=== PATIENT | female | born 1945 | race Caucasian/White ===

== ENCOUNTER → 2019-03-07 | Outpatient (CLI) | payer OTHER, BC | LOC: RAD 09:12 | DX: R06.00 Dyspnea, unspecified (principal); Z88.8 Allergy status to other drugs, medicaments and biological substances; Z88.2 Allergy status to sulfonamides; Z88.0 Allergy status to penicillin; Z91.013 Allergy to seafood ==

== ENCOUNTER → 2019-03-16 | Outpatient (CLI) | payer OTHER, BC | LOC: CAT 12:47 | DX: I77.89 Other specified disorders of arteries and arterioles (principal); I25.10 Atherosclerotic heart disease of native coronary artery without angina pectoris; M47.814 Spondylosis without myelopathy or radiculopathy, thoracic region; I70.0 Atherosclerosis of aorta ==

== ENCOUNTER → 2019-04-11 | Outpatient (CLI) | payer OTHER, BC ==
[~2019-04-11] VITALS: Ht 167.6 cm; Wt 68.9 kg
[~2019-04-11] MED LIST: DIGOXIN125 MCG PO; MIDODRINE HCL 55 M1 PO; REMERON15 MG PO; SYNTHROID75 MCG PO
[2019-04-11 07:09] VITALS: BP 127/86
[2019-04-11 07:26] LABS: HEMATOCRIT 44.5 % (37.0-47.0); HEMOGLOBIN 14.8 gm/dL (12.0-15.0); MCH 31.9 pg (26.0-34.0); MCHC 33.3 g/dL (28.0-37.0); MCV 95.8 fL (80.0-100.0); RBC 4.64 mil/uL (4.20-5.00); RDW 14.9 % (10.5-14.5); WBC 11.2 thou/uL (4.0-11.0)
[2019-04-11 07:37] LABS: CALCIUM 10.5 mg/dL (8.5-10.1); CREATININE 1.8 mg/dL (0.6-1.0); POTASSIUM 4.3 mmol/L (3.5-5.1)
--- NOTE | 2019-04-11 08:16 | EKG ---
[place] [address] [facility] [employer] [place] [address] ELECTROCARDIOGRAM REPORT Name: EDWIN WORKMAN [id number] Admission: 04/11/19 Attend Phys: Ammon Fernández MD, Discharge: Date of : 41 Report #: [id number] THIS REPORT FOR: //name// [facility] Test Date: 2019-04-11 Test Time: 07:18:50 Pat Name: EDWIN WORKMAN Department: Room: Gender: F [place] Measurer: Sony ANDREWS : 1945 Requested By: Ammon Fernández Order Number: [id number] MD: Bala Church Measurements Intervals [place] Rate: 76 P: 51 VT: 183 QRS: 137 QRSD: 104 T: 42 QT: 382 QTc: 430 Interpretive Statements Sinus rhythm Right axis deviation Abnormal R-wave progression, late transition Compared to ECG 03/19/1998 06:52:00 Right-axis deviation now present Incomplete right bundle-branch block no longer present T-wave abnormality no longer present Electronically Signed On 04-11-2019 8:16:14 CDT by Bala Church [email or web address] <ELECTRONICALLY SIGNED> By: Bala Church MD 04/11/19815 7 7 Bala Church MD /EPI
--- NOTE | 2019-04-12 16:18 | CATHLAB ---
[facility] [address] [place] [address] INVASIVE PROCEDURE REPORT Name: EDWIN WORKMAN Room #: REG Samuel#: [id number] Admission: 04/11/19 Attend Phys: Ammon Fernández, Discharge: Date of : 43 Report #: [id number] THIS REPORT FOR: //name// APPROVED REPORT Study performed: 04/11/2019 07:39:27 Patient Details Patient Status: Out-Patient Room #: The patient is a 73 year-old female Event Personnel Ammon Fernández Labor Relations Specialist, Aba Del Rio RN, Delgado Oconnor RTR Scrub, Jeronimo Pena Monitor, Ute Simmons RTR Scrub Procedures Performed Right and Left Heart Cath w/or w/o Coronarie [id number] [facility] Renal Bilateral Peripheral Angiography [id number] CVRENALBIL Indication Chest pain Procedure Narrative The Right Groin^ was infiltrated with 1% Lidocaine subcutaneous anesthesia. A PINNACLE 6FR Sheath #[id number] sheath was inserted into the . Coronary angiography was performed using coronary diagnostic catheters. The right coronary system was accessed and visualized with a JR4 catheter. The left coronary system was accessed and visualized with a 6FR JL5 #[id number] catheter. The left ventricle was accessed and visualized with a PIGTAIL catheter. Left ventricular/Aortic Valve gradient assessed via catheter pullback. Left ventriculogram was performed in 30 degree projection. Closure device was deployed with a 6 Fr MYNXGRIP 6/7F #[id number]. The patient tolerated the procedure well and there were no complications associated with the procedure. There was no hematoma. Intraoperative Conscious Sedation Sedation start time: 8.31 Case end Time: 9.13 Fentanyl 50 mcg Versed 2 mg Fluoro Time: 7.49 minutes Dose: DAP 3277 cGycm2 325 mGy Contrast Type and Amount: Visipaque 60 ml [facility] [place] [address] INVASIVE PROCEDURE REPORT Name: EDWIN WORKMAN Room #: REG Samuel#: [id number] Admission: 04/11/19 Attend Phys: Ammon Fernández, Discharge: Date of : 43 Report #: [id number] Hemodynamics The right atrial mean pressure is 13 mmHg. The right ventricular pressure is 48/8 mmHg. The pulmonary artery pressure is 28/15 mmHg with a mean of 21 mmHg. The aortic pressure is 136/61 mmHg with a mean of 73 mmHg. The left ventricular pressure is 121/9 mmHg with a mean of mmHg. The left ventricular end diastolic pressure is 16 mmHg. There was no gradient across the aortic valve upon pullback. Pullback from the left ventricle to the aorta revealed no gradient across the aortic valve. The cardiac output using thermo method is 4.45 L/min. The cardiac index using thermo method is 2.50 L/min/m2. Conclusion #1 successful right heart catheterization with hemodynamics as stated above. Cardiac output by thermodilution. Gradient difference between right ventricle and pulmonary artery may signify some degree of pulmonary valve stenosis. #2 left main free of disease giving rise to LAD and circumflex #3 LAD with mild disease type I extends short of the apex #4 small nondominant circumflex with mild irregularity #5 large dominant mildly ectatic right coronary artery system no occlusive disease. #6 left renal artery with mild ostial disease suspected renal artery atherosclerosis. No occlusive lesion #6 right renal artery is smaller mild disease proximally but no evidence of FMD or significant stenosis Recommendations and plan: Continue aggressive risk factor modification. No significant pulmonary pressure elevation with evidence or history of significant pulmonary artery dilatation. There is a 10-12 mm gradient between the right ventricle and pulmonary artery. Follow-up with Dr. Vázquez <ELECTRONICALLY SIGNED> By: Ammon Feránndez MD, FACC 04/12/19 1618 17 17 Ammon Fernández MD, FACC /INF
== END | disposition home or self-care (01) ==
LOC: CATH 06:42 → CAT 10:03
PROVIDERS: Internal Medicine Cardiovascular Disease
DX: R07.9 Chest pain, unspecified (principal); I25.10 Atherosclerotic heart disease of native coronary artery without angina pectoris; I70.1 Atherosclerosis of renal artery; I10 Essential (primary) hypertension; E78.5 Hyperlipidemia, unspecified; E11.9 Type 2 diabetes mellitus without complications; Z98.890 Other specified postprocedural states; Z90.49 Acquired absence of other specified parts of digestive tract; Z79.899 Other long term (current) drug therapy; Z90.710 Acquired absence of both cervix and uterus

== ENCOUNTER → 2019-07-25 | Outpatient (CLI) | payer OTHER, BC | LOC: SJCVCIMAG 12:37 | DX: I08.8 Other rheumatic multiple valve diseases (principal); I27.20 Pulmonary hypertension, unspecified; E78.5 Hyperlipidemia, unspecified; I10 Essential (primary) hypertension; R94.31 Abnormal electrocardiogram [ECG] [EKG]; E11.9 Type 2 diabetes mellitus without complications; E03.9 Hypothyroidism, unspecified; Z90.710 Acquired absence of both cervix and uterus ==

== ENCOUNTER → 2020-03-12 | Outpatient (CLI) | payer OTHER, BC | LOC: SJCVC 13:36 | PROVIDERS: ATTEND Internal Medicine Cardiovascular Disease | DX: R94.31 Abnormal electrocardiogram [ECG] [EKG] (principal); I27.20 Pulmonary hypertension, unspecified; I95.9 Hypotension, unspecified; E78.5 Hyperlipidemia, unspecified; N17.0 Acute kidney failure with tubular necrosis ==

== ENCOUNTER → 2020-08-18 | Outpatient (CLI) | payer OTHER, BC | LOC: SJCVCIMAG 09:37 | PROVIDERS: ATTEND Internal Medicine Cardiovascular Disease | DX: I34.0 Nonrheumatic mitral (valve) insufficiency (principal); R94.31 Abnormal electrocardiogram [ECG] [EKG]; I28.1 Aneurysm of pulmonary artery; E78.5 Hyperlipidemia, unspecified; I27.20 Pulmonary hypertension, unspecified; I48.0 Paroxysmal atrial fibrillation; E11.22 Type 2 diabetes mellitus with diabetic chronic kidney disease; I13.10 Hypertensive heart and chronic kidney disease without heart failure, with stage 1 through stage 4 chronic kidney disease, or unspecified chronic kidney disease; N18.9 Chronic kidney disease, unspecified; E03.9 Hypothyroidism, unspecified; Z90.49 Acquired absence of other specified parts of digestive tract; Z90.710 Acquired absence of both cervix and uterus; Z95.828 Presence of other vascular implants and grafts; Z88.8 Allergy status to other drugs, medicaments and biological substances; Z79.899 Other long term (current) drug therapy; Z86.79 Personal history of other diseases of the circulatory system; Z82.49 Family history of ischemic heart disease and other diseases of the circulatory system ==

== ENCOUNTER 2020-12-17 12:49 | Emergency (ER) | payer OTHER, BC ==
[~2020-12-17] VITALS: Ht 172.7 cm; Wt 59.0 kg
[2020-12-17 12:52] VITALS: BP 118/77
== END 2020-12-17 13:28 | disposition home or self-care (01) ==
LOC: ER 12:49
DX: S81.831A Puncture wound without foreign body, right lower leg, initial encounter (principal); I10 Essential (primary) hypertension; Z88.5 Allergy status to narcotic agent; Z88.0 Allergy status to penicillin; Z79.899 Other long term (current) drug therapy; W54.0XXA Bitten by dog, initial encounter; Y93.89 Activity, other specified; Y92.89 Other specified places as the place of occurrence of the external cause; Y99.9 Unspecified external cause status

== ENCOUNTER 2021-01-09 11:50 | Inpatient (IN) | payer OTHER, BC ==
[~2021-01-09] VITALS: Ht 167.6 cm; Wt 58.1 kg
[2021-01-09] VITALS (17 sets, daily range): BP systolic 81–103; BP diastolic 48–73
--- NOTE | ~2021-01-09 | EMS ---
[address] [address] EMS Patient Care Report Name: EDWIN WORKMAN Room #: REG JUAREZ Baker#: [id number] Admission: 01/09/21 Attend Phys: Discharge: Date of : 43 Report #: [id number] THIS REPORT FOR: //name// Report Transmitted: 01/09/2021 12:25 EMS Care Summary [facility] Incident [id number] @ 01/09/2021 10:58 Incident Location [address] [place] [address] Patient EDWIN WORKMAN Female, 75 Years 1945 Patient Address [address] [place] [address] Patient History Kidney/Renal Failure,Mastectomy, Patient Allergies Codeine,Penicillin allergy,Morphine,Shellfish allergy, Patient Medications Senna, Midodrine, Levothyroxine, Amiodarone, Chief Complaint "She's been getting weaker." Disposition Transported No Lights/[place] Reason Sick Person Transported To [facility] Narrative History: Pt's DPOA on scene reports she has noted a considerable decline in the patient's condition over the course of the last 5 days. Pt's DPOA reports that she provides regular assistance for the patient, and that today the pt was barely able to walk without assistance. DPOA reports the pt laid down on the [facility] [address] [place] [address] EMS Patient Care Report Name: EDWIN WORKMAN Room #: REG [facility]#: [id number] Admission: 01/09/21 Attend Phys: Discharge: Date of : 43 Report #: [id number] couch, and has been too weak to get up. DPOA reports she has monitored the pt's BP to be 60 systolic this morning. Pt complains of generalized weakness and fatigue. Pt denies any N/V/D or known hemorrhage. Pt denies any chest pain, shortness of breath, syncope, or recent trauma. Pt denies any change in urine output or fluid/food intake. No other complaints noted at this time. Assessment: Pt was found laying in semi-foster's position on a sofa inside the home. Pt airway patent. Pt breathing adequate and non-labored. Pt radial pulse weak. Pt skin appeared pale and clammy. Pt seemed fatigued. See assessment tab for detailed physical exam findings and pertinent negatives. Treatment: Primary. VS. HPI. PMH. Physical exam. 12-lead ECG. Pt assisted to EMS stretcher and secured in trendelenburg position. Pt moved via stretcher to ambulance. IV attempt x1 unsuccessful. Note: Initial BP delayed >5 minutes as autocuff was timing out on reading. Transport: En route, continue with on-going assessment. Biocom to [place], pt's preferred destination. IV attempt successful 22g in pt's L AC. Fluid bolus started. No other changes noted during reassessment. Destination: Pt brought via stretcher to ED room 9. Pt moved via lateral sheet drag to hospital bed. Report provided to attending RN. Patient signed. Care transferred. Initial Vitals @11:38P: 74,BP: 59/49,SpO2: 88, @11:10P: 99,ME Suspected: false @11:24P: 75,SpO2: 90, @11:23P: 75,BP: 81/56, @11:41P: 74,R: 16,BP: 76/44,GCS: 15,Revised Trauma: 11, @11:09P: 75,R: 16,Pain: 0/10,GCS: 15,Temp: 97.1F,Glucose: 225,SpO2: 93, Assessments @11:10MENTAL:Person Oriented,Time Oriented,Place Oriented,Event Oriented,SKIN:Pale,HEENT:Eyes: Left Pupil: 4-mm,Eyes: Right Pupil: 4-mm,Head/Face: No Abnormalities,LUNG SOUNDS:ABDOMEN:PELVIS//GI:EXTREMITIES:Left Arm: No Abnormalities,Right Arm: No Abnormalities,Left Leg: No Abnormalities,Right Leg: No Abnormalities,PULSE:NEURO:Weakness Left-Sided,Weakness Right-Sided, Impression Hypotension Procedures @11:30Normal Saline (.9% NaCl) 100cc (22 ga) Site: Antecubital-LeftResponse: UnchangedSucceeded@11:22Normal Saline (.9% NaCl) cc (20 ga) Site: [address] [address] EMS Patient Care Report Name: EDWIN WORKMAN Room #: REG JUAREZ Baker#: [id number] Admission: 01/09/21 Attend Phys: Discharge: Date of : 41 Report #: [id number] Antecubital-LeftResponse: UnchangedFailed@11:1012-Lead ECG Timeline 10:57,Call Received 10:57,Psap Call 10:58,Dispatched 10:59,En Route 11:05,On Scene 11:06,At Patient 11:09,BP: / M,PULSE: 75,RR: 16 R,SPO2: 93 Ox,ETCO2: ,B,PAIN: 0,GCS: 15, 11:10,12-Lead ECG, 11:10,BP: / M,PULSE: 99,RR: R,SPO2: Ox,ETCO2: ,BG: ,PAIN: ,GCS: , 11:22,Depart Scene 11:22,Normal Saline (.9% NaCl) cc 20 ga Site: Antecubital-Left,Response: UnchangedFailed, 11:23,BP: 81/56 M,PULSE: 75,RR: R,SPO2: Ox,ETCO2: ,BG: ,PAIN: ,GCS: , 11:24,BP: / M,PULSE: 75,RR: R,SPO2: 90 Ox,ETCO2: ,BG: ,PAIN: ,GCS: , 11:30,Normal Saline (.9% NaCl) 100cc 22 ga Site: Antecubital-Left,Response: UnchangedSucceeded, 11:38,BP: 59/49 M,PULSE: 74,RR: R,SPO2: 88 Ox,ETCO2: ,BG: ,PAIN: ,GCS: , 11:41,BP: 76/44 M,PULSE: 74,RR: 16 R,SPO2: Ox,ETCO2: ,BG: ,PAIN: ,GCS: 15, 11:44,At Destination 12:13,Call Closed Disclaimer v1.1 Copyright 2020 [employer] This EMS Care Summary contains data elements from the applicable legal record (which may be displayed differently). It is designed to provide pertinent information for the following purposes: continuity of care, clinical quality, and state data reporting. The complete legal record is available to ED staff and administrators of the receiving hospital in ES's Patient Tracker. All data is provided "as is."
--- NOTE | ~2021-01-09 | HC ---
[facility] [place] [address] CONSULTATION Name: EDWIN WORKMAN Room #: 236-P ADM IN M.R.#: [id number] Admission: 01/09/21 Attend Phys: John Riggs MD Discharge: Date of : 43 Report #: [id number] THIS REPORT FOR: cc: John Riggs MD, Neal A. MD Al-Absi,Mane Morales MD ~ DOC #: [id number] Mane Jean Baptiste MD RENAL CONSULTATION REASON FOR THE CONSULTATION: Acute kidney injury. REASON FOR THE PRESENTATION: Brought by her friend after a few days of not feeling well. HISTORY OF PRESENT ILLNESS: This is a very well known patient to me. She is a 75-year-old with history of pulmonary hypertension, diabetes mellitus, chronic kidney disease, remote history of endocarditis. She had acute kidney injury about a year ago that required hemodialysis in another facility. She usually follows up with me in the clinic. Her baseline creatinine most recently is around 3. She has not been feeling well for a few days. She presented with her friend for further evaluation and management. She was found to have significantly worsening kidney function with a BUN of 218, potassium of 6.1, creatinine of 9.6. She responded well to the initial phase of medical treatment. However, she is still running into major electrolyte and acid base problems. She was extremely hypotensive on her arrival to the emergency room. This is being worked up. I was consulted to manage her acute kidney injury. HOME MEDICATIONS: 1. Midodrine. 2. Digoxin. 3. Levothyroxine. ALLERGIES: LISTED AMONGST HER ALLERGIES: CODEINE, EPINEPHRINE, PENICILLIN. SOCIAL HISTORY: She lives with a friend. No drug or alcohol abuse. PAST MEDICAL HISTORY: 1. Remote history of diabetes mellitus. 2. Chronic hypertension. 3. Mitral valve prolapse. 4. Appendectomy. 5. History of pulmonary hypertension. 6. Questionable history of endocarditis. [facility] [address] [place] [address] CONSULTATION Name: EDWIN WORKMAN Room #: 236-P [facility]#: [id number] Admission: 01/09/21 Attend Phys: John Riggs MD Discharge: Date of : 43 Report #: [id number] REVIEW OF SYSTEMS: GENERAL: Significant for weakness and lethargy. CARDIOVASCULAR: No chest pain or palpitation. PULMONARY: No cough or hemoptysis. GASTROINTESTINAL: Significant for nausea, vomiting, diarrhea. GENITOURINARY: No frequency, no urgency. MUSCULOSKELETAL: Occasional myalgias and arthralgias. NEUROLOGICAL: Significant for weakness and lethargy in the last few days, no seizure activities. PHYSICAL EXAMINATION: GENERAL: She is awake, alert, oriented, able to provide me with history. VITAL SIGNS: Temperature is 36.2, blood pressure is 82/49. HEAD AND NECK: No jugular venous distention. CHEST: No crackles. CARDIOVASCULAR: No rub detected. ABDOMEN: Soft, nontender. LOWER EXTREMITIES: No edema. LABORATORY VALUES: From today, white blood cell count is 11.2, hemoglobin is 11.8, platelet is 125. Sodium is 155, chloride is 117, carbon dioxide is 19, BUN is 191, creatinine is 8.0. IMPRESSION AND PLAN: 1. Acute kidney injury. 2. Chronic kidney disease with a new baseline creatinine of around 3.0. 3. Hyperkalemia. 4. Metabolic acidosis. 5. Remote history of endocarditis. 6. The patient's worsening renal function is likely related to severe volume depletion. She responded very well to the initial volume resuscitation; however, she is still running into hypernatremia. 7. I will reformulate her IV fluid. 8. I will reach out to her friend who is usually taking care of her needs to discuss plans regarding dialysis if needed. 9. Continue to monitor daily electrolytes and renal function. 10. Other diagnostic studies ordered. 11. Blood cultures. 12 Urine cultures. 13 Investigate the source for hypertension. 14. We will continue to follow. Mane Jean Baptiste MD [place] [address] CONSULTATION Name: EDWIN WORKMAN Room #: 236-P [facility] IN .R.#: [id number] Admission: 01/09/21 Attend Phys: John Riggs MD Discharge: Date of : 43 Report #: [id number] By: 0646 2020 Mane Jean Baptiste MD /jesus
[2021-01-09 13:18] LABS: ABSOLUTE NEUTROPHILS 12.7 thou/uL (1.4-8.2); BASOPHILS 0.3 % (0.0-2.0); HEMOGLOBIN 14.1 gm/dL (12.0-15.0); LYMPHOCYTES 2.1 % (24.0-44.0); MCH 31.7 pg (26.0-34.0); MCV 98.9 fL (80.0-100.0); MONOCYTES 5.7 % (1.0-8.0); PLATELET COUNT 187 thou/uL (150-400); POLYS 91.9 % (36.0-66.0); RBC 4.45 mil/uL (4.20-5.00); RDW 14.5 % (10.5-14.5); WBC 13.8 thou/uL (4.0-11.0)
[2021-01-09 13:42] LABS: URINE BILIRUBIN NEGATIVE (Negative); URINE BLOOD 3+ (Negative); URINE COLOR YELLOW; URINE GLUCOSE-RANDOM* NEGATIVE (Negative); URINE KETONES NEGATIVE (Negative); URINE NITRITE-REFLEX NEGATIVE (Negative); URINE PROTEIN (DIPSTICK) 2+ (Negative); URINE SPECIFIC GRAVITY 1.025 (1.005-1.035); URINE UROBILINOGEN 0.2 E.U./dl (0.2-1.0)
[2021-01-09 13:44] LABS: URINE CLARITY HAZY; URINE LEUKOCYTES-REFLEX 3+ (Negative)
[2021-01-09 13:47] LABS: ANION GAP 20 mmol/L (7-16); BUN 218 mg/dL (7-18); CALCIUM 9.8 mg/dL (8.5-10.1); CHLORIDE 117 mmol/L (98-107); CO2 17 mmol/L (21-32); CREATININE 9.6 mg/dL (0.6-1.0); DIRECT BILIRUBIN 0.1 mg/dL (<0.1-0.2); GLUCOSE 188 mg/dL (74-106); SGOT 18 U/L (15-37); SGPT 25 U/L (14-59); SODIUM 154 mmol/L (136-145); TOTAL BILIRUBIN 0.3 mg/dL (0.2-1.0); TOTAL PROTEIN 6.9 g/dL (6.4-8.2); TROPONIN-I <0.06 ng/mL (<0.06)
[2021-01-09 13:50] LABS: POTASSIUM 6.1 mmol/L (3.5-5.1)
[2021-01-09 14:22] LABS: BACTERIA-REFLEX 1-9 Few /HPF (None Seen); CASTS None Seen /LPF (None Seen); CRYSTALS None Seen /LPF (None Seen); SQUAMOUS None Seen /LPF (0-3); URINE WBC-REFLEX >25 Many /HPF (0-5)
[2021-01-09 15:18] LABS: APTT 23.4 Seconds (24.5-32.8); INR 1.14; PROTIME 12.3 Seconds (10.5-12.1)
--- NOTE | 2021-01-09 18:45 | NUR ---
PATIENT ARRIVED TO ICU AT 1740 FROM . PATIENT'S BELONGINGS ACCOUNTED FOR. PATIENT'S 1 FAMILY MEMBER WAS PRESENT DURING TRANSPORT AND PROVIDED INFORMATION REGARDING THE PATIENT.
--- NOTE | 2021-01-09 23:30 | NUR ---
This RN spoke to Cathi Francisco (LUIS) at 2200. Discussed patient status and plan of care.
[2021-01-10] VITALS (26 sets, daily range): BP systolic 75–101; BP diastolic 43–59
[2021-01-10 04:22] LABS: CALCIUM 8.4 mg/dL (8.5-10.1)
[2021-01-10 04:23] LABS: HEMATOCRIT 35.7 % (37.0-47.0); MCH 32.7 pg (26.0-34.0); MCHC 33.1 g/dL (28.0-37.0); MCV 98.9 fL (80.0-100.0); RBC 3.61 mil/uL (4.20-5.00); RDW 14.1 % (10.5-14.5); WBC 11.2 thou/uL (4.0-11.0)
[2021-01-10 04:24] LABS: HEMOGLOBIN 11.8 gm/dL (12.0-15.0)
[2021-01-10 04:27] LABS: POTASSIUM 3.8 mmol/L (3.5-5.1)
--- NOTE | 2021-01-10 05:02 | NUR ---
This RN spoke to Dr. Riggs at 0500 regarding patients blood pressures with systolics in the 70's and 80's. Maps in the 50's. Physician is aware and no new orders in place. Will continue to monitor.
--- NOTE | 2021-01-10 08:32 | NUR ---
PATIENT'S FRIEND, TYRON, CALLED FROM [phone] AND SHE WAS UPDATED AND EDUCATED ON THE PATIENT'S CONDITION AND PLAN OF CARE.
[2021-01-11] VITALS (43 sets, daily range): BP systolic 77–101; BP diastolic 44–59
--- NOTE | 2021-01-11 04:20 | NUR ---
ASSUMED CARE OF PATIENT AT 1900. BP REMAINS LOW. PATIENT REFUSES MIRTZAPINE, STATES SHE DOESN'T TAKE IT. REFUSES BATH. DID ALLOW PAULA-CARE. RESTING THROUGH THE NIGHT. WAITING ON MORNING LABS TO ASSESS KIDNEY FUNCTION.
[2021-01-11 04:31] LABS: CALCIUM 7.9 mg/dL (8.5-10.1); PHOSPHORUS 5.3 mg/dL (2.6-4.7)
[2021-01-11 04:33] LABS: CREATININE 6.6 mg/dL (0.6-1.0); POTASSIUM 2.6 mmol/L (3.5-5.1)
--- NOTE | 2021-01-11 10:11 | 2DMMODE ---
[facility] [place] [address] 2 D/M-MODE ECHOCARDIOGRAM Name: EDWIN WORKMAN Rafael Room #: 236-P ADM IN M.R.#: [id number] Admission: 01/09/21 Attend Phys: John Riggs MD Discharge: Date of : 43 Report #: [id number] THIS REPORT FOR: cc: John Riggs MD, Neal A. MD PradeepAmmon jean baptiste MD [facility] ~ APPROVED REPORT Study performed: 01/10/2021 08:52:19 EXAM: Comprehensive 2D, Doppler, and color-flow Echocardiogram Patient Location: In-Patient Room #: 236 Status: routine BSA: 1.70 HR: 68 bpm BP: 82/49 mmHg Rhythm: NSR Other Information Study Quality: Adequate Indications Hypotension Pulmonary Hypertension Diabetes 2D Dimensions RVDd: 30.72 mm IVSd: 7.91 (7-11mm) LVOT Diam: 20.18 (18-24mm) LVDd: 36.51 mm PWd: 10.13 (7-11mm) Ascending Ao: 34.90 (22-36mm) LVDs: 27.91 (25-40mm) Left Atrium: 33.55 (27-40mm) Aortic Root: 22.98 mm Volumes Left Atrial Volume (Systole) Single Plane 4CH: 23.46 mL Single Plane 2CH: 30.10 mL Biplane LA Volume: 28.00 mL LA ESV Index: 17.00 mL/m2 Aortic Valve AoV Peak William.: 1.29 m/s AO Peak Gr.: 7.20 mmHg LVOT Max P.01 mmHg [facility] [address] [place] [address] 2 D/M-MODE ECHOCARDIOGRAM Name: EDWIN WORKMAN Room #: 236-P [facility]#: [id number] Admission: 01/09/21 Attend Phys: John Riggs, Discharge: Date of : 43 Report #: [id number] LVOT Max V: 0.87 m/s DILIA Vmax: 2.15 cm2 Mitral Valve E/A Ratio: 0.8 MV Decel. Time: 1487.38 ms MV E Max William.: 0.30 m/s MV A William.: 0.40 m/s MV PHT: 431.34 ms MVA (PHT): 4.49 cm2 IVRT: 106.11 ms Pulmonary Valve PV Peak William.: 2.34 m/s PV Peak Gr.: 21.90 mmHg Pulmonary Vein P Vein S: 0.69 m/s P Vein A: 0.22 m/s P Vein D: 0.36 m/s P Vein A Dur.: 120.0 msec P Vein S/D Ratio: 1.92 Tricuspid Valve TR Peak William.: 3.10 m/s RAP Estimate: 10.00 mmHg TR Peak Gr.: 38.54 mmHg RVSP: 48.00 mmHg Left Ventricle The left ventricle is normal size. There is normal LV segmental wall motion. There is normal left ventricular wall thickness. Left ventricular systolic function is mildly decreased. LVEF is 45-50%. Transmitral Doppler flow pattern suggests impaired LV relaxation. Right Ventricle The right ventricle is normal size. Right ventricle is mildly hypokinetic. Atria The left atrium size is normal. The right atrium size is normal. Aortic Valve The aortic valve is normal in structure. Trace to mild aortic regurgitation. There is no aortic valvular stenosis. Mitral Valve The mitral valve is normal in structure. There is no mitral valve regurgitation noted. No evidence of mitral valve stenosis. [facility] [address] [place] [address] 2 D/M-MODE ECHOCARDIOGRAM Name: EDWIN WORKMAN Room #: 236-P [facility] IN ..#: [id number] Admission: 01/09/21 Attend Phys: John Riggs, Discharge: Date of : 43 Report #: [id number] Tricuspid Valve The tricuspid valve is normal in structure. Mild tricuspid regurgitation. PAP 48 mmHg Pulmonic Valve The pulmonary valve is normal in structure. There is no pulmonic valvular regurgitation. Great Vessels The aortic root is normal in size. IVC is dilated. There is severe pulmonary artery dilation. PA 6.8 cm LPA 2.7 cm RPA 3.4 cm Pericardium There is no pericardial effusion. <Conclusion> The left ventricle is normal size. Left ventricular systolic function is mildly decreased. LVEF is 45-50%. Transmitral Doppler flow pattern suggests impaired LV relaxation. The right ventricle is normal size. The left atrium size is normal. Trace to mild aortic regurgitation. There is no mitral valve regurgitation noted. Mild tricuspid regurgitation. PAP 48 mmHg The aortic root is normal in size. IVC is dilated. There is no pericardial effusion. <ELECTRONICALLY SIGNED> By: Ammon Fernández MD, FACC 01/11/21 1011 1011 1011 Ammon Fernández MD, FACC /INF
--- NOTE | 2021-01-11 12:10 | NUR ---
PT'S LUIS ACKERMAN IS HERE AND AT BEDSIDE. QUESTIONS ASKED AND ANSWERED. PT SITTING UPRIGHT EATING HER LUNCH.
[2021-01-11 15:06] LABS: CALCIUM 7.8 mg/dL (8.5-10.1); CREATININE 5.9 mg/dL (0.6-1.0); PHOSPHORUS 4.7 mg/dL (2.6-4.7); POTASSIUM 3.1 mmol/L (3.5-5.1)
--- NOTE | 2021-01-11 23:35 | NUR ---
PT RESTING QUIETLY IN BED AT THIS TIME. ABFEBRILE. POTASSIUM REPLACED PER DR ORDER. WILL REASSESS POTASSIUM LEVEL WITH MORNING LABS. SBP 80S-90S. SR ON TELE, HR 60S. ISRAEL TO DD WITH GOOD URINE OUTPUT. WILL CONTINUE TO MONITOR FURTHER.
[2021-01-12] VITALS (28 sets, daily range): BP systolic 79–116; BP diastolic 45–70
--- NOTE | 2021-01-12 04:02 | NUR ---
PT SLEPT MOST OF THE NIGHT. RESPIRATIONS EVEN AND UNLABORED. SHE DENIED ANY PAIN ALL NIGHT. SHE CONTINUES TO BE HYPOTENSIVE WITH SBP 80S-90S. RENAL AND PRIMARY PHYSICIANS ARE AWARE OF HER CHRONIC HYPOTENSION. SHE IS ASYMPTOMATIC WITH LOW BP. AFEBRILE. FALL PRECAUTIONS IN PLACE. PROGRESSING SLOWLY TOWARD POC GOALS. WILL MONITOR FURTHER.
[2021-01-12 04:42] LABS: ALBUMIN 1.8 g/dL (3.4-5.0); CALCIUM 7.5 mg/dL (8.5-10.1); CREATININE 5.3 mg/dL (0.6-1.0); POTASSIUM 3.3 mmol/L (3.5-5.1)
--- NOTE | 2021-01-12 07:09 | EKG ---
[address] [address] ELECTROCARDIOGRAM REPORT Name: EDWIN WORKMAN Room #: 236-P ADM IN M.R.#: [id number] Admission: 01/09/21 Attend Phys: John Riggs MD Discharge: Date of : 41 Report #: [id number] [facility] ED Test Date: 2021-01-09 Test Time: 12:01:09 Pat Name: EDWIN WORKMAN Department: Room: 236 Gender: F Legal Document Specialist: KENNETH : 1945 Requested By: Ute Dowell Order Number: [id number] MD: Jose F Faulkner Measurements Intervals [place] Rate: 71 P: [place]: QRS: 133 QRSD: 106 T: 72 QT: 400 QTc: 435 Interpretive Statements NSR Anteroseptal infarct, age indeterminate Compared to ECG 04/11/2019 07:18:50 Myocardial infarct finding now present Right-axis deviation no longer present Electronically Signed On 01-12-2021 7:09:27 CDT by Jose F Faulkner [email or web address] <ELECTRONICALLY SIGNED> By: Jose F Faulkner MD, [facility] 01/12/21 0709 00 00 Jose F Faulkner MD, [facility] /EPI
--- NOTE | 2021-01-12 07:09 | EKG ---
[address] [place] [place] [address] ELECTROCARDIOGRAM REPORT Name: EDWIN WORKMAN Room #: 236-P ADM IN M.R.#: [id number] Admission: 01/09/21 Attend Phys: John Riggs MD Discharge: Date of : 41 Report #: [id number] [facility] ED Test Date: 2021-01-09 Test Time: 12:02:09 Pat Name: EDWIN WORKMAN Department: Room: 236 Gender: F Fire Coordinator: : 1945 Requested By: Ute Dowell Order Number: [id number] MD: Jose F Faulkner Measurements Intervals [place] Rate: 71 P: 53 NM: 136 QRS: 109 QRSD: 128 T: 63 QT: 442 QTc: 481 Interpretive Statements Sinus rhythm Nonspecific intraventricular conduction delay Compared to ECG 04/11/2019 07:18:50 Intraventricular conduction delay now present Right-axis deviation no longer present Electronically Signed On 01-12-2021 7:09:45 CDT by Jose F Faulkner [email or web address] <ELECTRONICALLY SIGNED> By: Jose F Faulkner MD, [facility] 01/12/21 0709 120 1202 Jose F Faulkner MD, [facility] /EPI
--- NOTE | 2021-01-12 09:36 | NUR ---
Chart review. Discussed at am rounds. possible be able to move out of icu today. PCP dr rivera. Cm visited with friend liliam via phone call, education on dcp, hh and rehab. [facility] know then comes to my house for bit then home. I check on her often but she lost wt and told me she been eating and drinking whater or any liquid. but not the case she was dehydrated when she go here. She lives alone at home with 2 steps to enter from the garage. manage own medication. HH in the past. Does her own laundry. [facility], Will cont following as needed for dc needs. [facility].
[2021-01-13] VITALS (8 sets, daily range): BP systolic 78–97; BP diastolic 46–64
[2021-01-13 04:36] LABS: ALBUMIN 1.8 g/dL (3.4-5.0); CALCIUM 8.2 mg/dL (8.5-10.1); CREATININE 4.6 mg/dL (0.6-1.0); POTASSIUM 4.2 mmol/L (3.5-5.1)
--- NOTE | 2021-01-13 04:37 | NUR ---
PT AFFECT IS FLAT, OCCASIONALLY NOT ANSWERING RN AND JUST STARING, DENIES PAIN, HR ELEVATED FOR MUCH OF SHIFT, UNCOMFORTABLE WITH POSITIONING, CONTINUAL STOOLING. STOOL IS SOFT, SEMI-LIQUID, PT DOES NOT APPEAR TO HAVE SPHINCTER CONTROL, SHE CONTINUES TO STOOL EVEN AFTER BEING CLEANED UP.
--- NOTE | 2021-01-13 08:34 | NUR ---
ASSUMED CARE OF PT AT 0700 DR. WREN AT BEDSIDE AT 0735, I SPOKE TO HIM ABOUT THE CONSTANT STOOLING AND HE IS GOING TO GIVE HE A DOSE OF IMODIUM TO SLOW DOWN ALL THE STOOLS. DR. LOPEZ AT BEDSIDE AT 0830, NO NEW ORDERS GIVEN CARDIOLOGY PA AT BEDSIDE AT 0830, NO NEW ORDERS GIVEN
--- NOTE | 2021-01-13 18:07 | NUR ---
PATIENT TRANSFERED FROM ICU. A/O X3. GENERLIZED WEAKNESS. LOOSE STOOL. VSS. WILL NICK MONITOR.
--- NOTE | 2021-01-14 03:31 | NUR ---
Slept fair during the night. Repositioned for comfort. Incontinent of bm. SCD's on and bed alarm on. Tolerating room air well.Making some progress towards care plan goals.
[2021-01-14 04:06] LABS: ALBUMIN 1.6 g/dL (3.4-5.0); CALCIUM 8.2 mg/dL (8.5-10.1); CREATININE 4.6 mg/dL (0.6-1.0); PHOSPHORUS 5.1 mg/dL (2.5-4.9); POTASSIUM 4.9 mmol/L (3.5-5.1)
[2021-01-14 04:12] VITALS: BP 104/64
[2021-01-14 08:36] VITALS: BP 85/54
[2021-01-14 12:40] VITALS: BP 88/55
--- NOTE | 2021-01-14 15:41 | NUR ---
SW reviewed chart and spoke with nursing and attending physician. Pt was transferred to 3 from ICU yesterday and is progressing towards goals for discharge. Discharge to [facility] is anticipated in 1-2 days. SW discussed with [facility] liaison, who states they are able to accept pt. Pt will need a COVID test. SW notified attending physician. RAYMOND met with pt at bedside to discuss discharge plan. Pt is aware and in agreement with plan. SW offered to contact her friend, Cathi, to provide update. Pt states that Cathi will be here later this afternoon and she will let her know. RAYMOND is following to assist as needed with discharge planning.
[2021-01-14 16:01] VITALS: BP 83/56
[2021-01-14 17:49] VITALS: BP 82/51
--- NOTE | 2021-01-14 18:03 | NUR ---
ASSUMED PT CARE AT SHIFT CHANGE, PT PLEASANT, MILD FORGETFUL. PT STATES SHE DOES NOT HAVE MUCH ENERGY, APPETITE FAIR. IV INFUSING PER ORDER, PT HAS [place] CATH IN PLACE, INCONTINENT OF BOWEL. PT VERBALIZES NO NEEDS, VISITORS CONCERNED WITH PRIOR BP READINGS. THIS SHIFT PT HAS BEEN "ABOUT NORMAL" PER HER FRIEND/FAMILY.
[2021-01-14 19:37] VITALS: BP 90/57
[2021-01-15 04:24] VITALS: BP 94/57
[2021-01-15 04:58] LABS: ALBUMIN 1.6 g/dL (3.4-5.0); CALCIUM 7.7 mg/dL (8.5-10.1); CREATININE 4.3 mg/dL (0.6-1.0); PHOSPHORUS 4.2 mg/dL (2.5-4.9); POTASSIUM 3.5 mmol/L (3.5-5.1)
[2021-01-15 05:23] LABS: HEMATOCRIT 31.8 % (37.0-47.0); HEMOGLOBIN 10.6 gm/dL (12.0-15.0); MCH 32.6 pg (26.0-34.0); MCHC 33.3 g/dL (28.0-37.0); MCV 97.9 fL (80.0-100.0); RBC 3.25 mil/uL (4.20-5.00); RDW 14.6 % (10.5-14.5); WBC 13.7 thou/uL (4.0-11.0)
--- NOTE | 2021-01-15 07:20 | NUR ---
PROGRESS PT DENIES PAIN, VSS, SLEPT THROUGHOUT NIGHT. HAD 2 FORMED BM AND WAS INCONTINENT. [place] IN PLACE WITH ADEQUATE OUTPUT. IVF INFUSING ORDERED CONTINUE POC.
[2021-01-15 07:21] VITALS: BP 83/50
--- NOTE | 2021-01-15 07:42 | NUR ---
ASSUMED PT CARE AT SHIFT CHANGE, PT REPORTS NO PAIN, NO CONCERNS. SLEPT OK LAST NIGHT. LOOKING FORWARD TO POSSIBLE DC TODAY. RN REPORT BMX2/SOFT LAST NIGHT.
--- NOTE | 2021-01-15 14:02 | NUR ---
ruffin cath removed per dc orders from Dr Riggs. Pt tolerated well. IV removed to prepare for dc w transport team.
--- NOTE | 2021-01-15 15:15 | NUR ---
DISCHARGE NOTE: SW reviewed chart and spoke with nursing and attending physician. Pt is medically stable for discharge to [facility] today. SW notified [facility] liaison, who confirms they are able to accept pt today. Wheelchair van transportation scheduled for 1500 per facility's arrangements. SW notified physician. Discharge ppwk faxed to [facility]. Confirmed info was received. RAYMOND met with pt at bedside to provide update and notify of discharge time. Pt is agreeable with plan and requests SW notify her friend, Cathi. SW left voice message for Cathi with transportation time. Chart copy requested. Nursing to call report. No additional SW needs identified at this time, but is available to assist should needs arise.
[2021-01-15 16:13] VITALS: BP 83/50
== END 2021-01-15 15:25 | DRG 871 ==
LOC: ER 11:50 → EROBS 14:59 → ICU 14:59 → 2N 17:07 → ICU 17:49 → 3W 01-13 12:14
PROVIDERS: Emergency Medicine; Hospitalist; ADMIT Family Medicine; ATTEND Family Medicine
DX: A41.9 Sepsis, unspecified organism (principal); E43 Unspecified severe protein-calorie malnutrition; N17.9 Acute kidney failure, unspecified; E87.0 Hyperosmolality and hypernatremia; E87.2 Acidosis; I95.9 Hypotension, unspecified; E11.22 Type 2 diabetes mellitus with diabetic chronic kidney disease; I27.20 Pulmonary hypertension, unspecified; N18.9 Chronic kidney disease, unspecified; E78.5 Hyperlipidemia, unspecified; E87.5 Hyperkalemia; I48.0 Paroxysmal atrial fibrillation; F03.90 Unspecified dementia, unspecified severity, without behavioral disturbance, psychotic disturbance, mood disturbance, and anxiety; I95.89 Other hypotension; I12.9 Hypertensive chronic kidney disease with stage 1 through stage 4 chronic kidney disease, or unspecified chronic kidney disease; R53.81 Other malaise; Z20.822 Contact with and (suspected) exposure to COVID-19; E03.9 Hypothyroidism, unspecified; Z90.49 Acquired absence of other specified parts of digestive tract; Z90.710 Acquired absence of both cervix and uterus; Z88.0 Allergy status to penicillin; Z88.8 Allergy status to other drugs, medicaments and biological substances; Z88.6 Allergy status to analgesic agent; Z91.041 Radiographic dye allergy status; Z82.49 Family history of ischemic heart disease and other diseases of the circulatory system; Z79.899 Other long term (current) drug therapy
CPT/HCPCS: 10078; 10203; 10879